=== PATIENT | male | born 1970 | race Caucasian/White ===

== ENCOUNTER 2016-07-09 06:59 | Day surgery (SDC) | payer OTHER ==
[~2016-07-09 06:59] MED LIST: ALEVE220 M1 PO; ASPIR 8181 MG PO; AVELOX400 MG; BALSALAZIDE DI750 M1 PO; CARDURA1 MG PO; CLARITIN-D1 TAB.SR .; COLAZAL750 M1 PO; CPAP; CYCLOBENZAPRINE10 M1 PO; DAYQUIL; DEXAMETHASONE; LORTAB 5-325 M1 EAC1 PO; MEDROL4 M2 PO; MUCINEX; NASONEX17 G1 PO; NASONEX17 GM; OMEPRAZOLE40 M2 PO; OMEPRAZOLE40 MG PO; PERCOCET 5-3251 EACH PO; PROBIOTIC1 EA10 PO; SINGULAIR10 M1 PO; SINGULAIR10 MG PO; ZESTRIL5 MG PO; ZOCOR10 MG PO
== END 2016-07-09 16:00 ==
LOC: CTSCAN 06:59 → SHSB 08:41 → ORE 11:30 → PACU 12:57 → SHSB 13:30
PROC: 099Q0ZZ Drainage of Right Maxillary Sinus, Open Approach (ICD-10-PCS; principal; 2016-07-09)
PROC: 099R0ZZ Drainage of Left Maxillary Sinus, Open Approach (ICD-10-PCS; 2016-07-09)
PROC: 09BV0ZZ Excision of Left Ethmoid Sinus, Open Approach (ICD-10-PCS; 2016-07-09)
PROC: 09BU0ZZ Excision of Right Ethmoid Sinus, Open Approach (ICD-10-PCS; 2016-07-09)
PROC: 09C Ear, Nose, Sinus, Extirpation (ICD-10-PCS; 2016-07-09)
PROC: 09C Ear, Nose, Sinus, Extirpation (ICD-10-PCS; 2016-07-09)
DX: J33.9 Nasal polyp, unspecified (principal); K51.90 Ulcerative colitis, unspecified, without complications; E66.01 Morbid (severe) obesity due to excess calories; Z68.39 Body mass index [BMI] 39.0-39.9, adult; Z98.890 Other specified postprocedural states; Z88.6 Allergy status to analgesic agent; Z88.8 Allergy status to other drugs, medicaments and biological substances; Z79.899 Other long term (current) drug therapy
CPT/HCPCS: C2625; J0171; J7030